=== PATIENT | female | born 1985 | race Two or more races ===

== ENCOUNTER 2017-11-05 13:33 | Emergency (ER) | payer MEDICAID ==
[~2017-11-05] VITALS: Ht 165.1 cm; Wt 58.9 kg
[2017-11-05 14:46] VITALS: BP 122/67
== END 2017-11-05 14:51 | disposition home or self-care (01) ==
LOC: ED 14:45
DX: G89.29 Other chronic pain (principal); F17.200 Nicotine dependence, unspecified, uncomplicated; Z76.0 Encounter for issue of repeat prescription
CPT/HCPCS: 99281

== ENCOUNTER 2018-03-14 12:27 | Emergency (ER) | payer MEDICAID ==
[~2018-03-14] VITALS: Ht 175.3 cm; Wt 59.0 kg
[2018-03-14 12:41] VITALS: BP 101/71
== END 2018-03-14 13:57 | disposition home or self-care (01) ==
LOC: ED 13:51
DX: J20.8 Acute bronchitis due to other specified organisms (principal); B97.89 Other viral agents as the cause of diseases classified elsewhere; J02.8 Acute pharyngitis due to other specified organisms
CPT/HCPCS: 71046; 87081; 87147; 87880; 99285

== ENCOUNTER 2018-04-19 15:28 | Emergency (ER) | payer MEDICAID ==
[~2018-04-19] VITALS: Ht 165.1 cm; Wt 61.1 kg
[2018-04-19 15:47] VITALS: BP 103/69
[2018-04-19] MEDS ORDERED: IBUPROFEN 200 MG TABLET PO ONE (16:30)
== END 2018-04-19 16:58 | disposition home or self-care (01) ==
LOC: ED 16:47
DX: M70.832 Other soft tissue disorders related to use, overuse and pressure, left forearm (principal); F17.200 Nicotine dependence, unspecified, uncomplicated
CPT/HCPCS: 29260; 99284

== ENCOUNTER 2018-08-23 14:39 | Emergency (ER) | payer MEDICAID ==
[~2018-08-23] VITALS: Ht 165.1 cm; Wt 65.0 kg
[2018-08-23 14:40] VITALS: BP 103/69
--- NOTE | 2018-08-23 15:18 | NUR ---
MEDICATION REQUESTED FROM PHARMACY
[2018-08-23] MEDS ORDERED: CLINDAMYCIN 150 MG/ML, 6ML IM ONE (15:30)
[2018-08-23] MEDS ORDERED: CLINDAMYCIN 150 MG/ML, 6ML ONE (15:35)
--- NOTE | 2018-08-23 15:44 | NUR ---
PT MEDICATED PER EMAR. DESPITE EDUCATION REGARDING OBS PERIOD, PT REQUESTING DC. PT REPORTS 'I'VE HAD THIS ANTIBIOTIC BEFORE'. PT REPORTS THAT FRIEND IS IN DEPARTMENT AND THAT SHE WILL BE IN ED UNTIL FRIEND'S DC. PT MADE AWARE OF S/S OF RXN AND AGREES TO MAKE STAFF AWARE OF RXN. DC EDUCATION PROVIDED, PT DEMONSTRATES UNDERSTANDING. PT AMBULATED STEADILY TO ROOM 17
== END 2018-08-23 15:47 | disposition home or self-care (01) ==
LOC: ED 15:09
DX: K04.7 Periapical abscess without sinus (principal); F17.200 Nicotine dependence, unspecified, uncomplicated
CPT/HCPCS: 96372; 99283; S0077

== ENCOUNTER 2019-05-03 19:24 | Emergency (ER) | payer SELFPAY ==
[~2019-05-03] VITALS: Ht 165.1 cm; Wt 61.4 kg
[2019-05-03 19:37] VITALS: BP 109/71
[2019-05-03] MEDS ORDERED: LIDOCAINE 1%, 10ML INFIL ONE (20:00)
[2019-05-03] MEDS ORDERED: BUPIVACAINE 0.25% INFIL ONE (20:00)
[2019-05-03] MEDS ORDERED: BUPIVACAINE/PF 0.5% ONE (20:02)
[2019-05-03] MEDS ORDERED: LIDOCAINE-MPF 1%, 5ML ONE (20:03)
[2019-05-03] MEDS ORDERED: BUPIVACAINE 0.25% ONE (20:04)
== END 2019-05-03 20:22 | disposition home or self-care (01) ==
LOC: ED 20:16
DX: K02.9 Dental caries, unspecified (principal); F17.200 Nicotine dependence, unspecified, uncomplicated; Z88.5 Allergy status to narcotic agent
CPT/HCPCS: 64400; 99284; J3490

== ENCOUNTER 2019-05-05 10:25 | Emergency (ER) | payer OTHER ==
[~2019-05-05] VITALS: Ht 165.1 cm; Wt 60.9 kg
[2019-05-05 10:28] VITALS: BP 114/75
--- NOTE | 2019-05-05 10:36 | NUR ---
DISCUSSED PT WITH DR MUÑIZ. PT SEEN IN [facility] ON 05/03 AND RPTS WORSENING PAIN AND SWELLING DESPITE ANTIBIOTICS. PT STATES THAT SHE HAS ATTEMPTED TO F/U WITH [facility] BUT THEY WILL NOT SEE HER UNTIL THE INFECTION IS RESSOLVED. PT OK TO GO TO [facility] AND HE WILL REVIEW POC WITH [facility] PA
[2019-05-05] MEDS ORDERED: OXYcodone/APAP 5/325MG TABLET PO ONE (11:00)
[2019-05-05] MEDS ORDERED: AZITHROMYCIN 500 MG TABLET ONE (11:11)
[2019-05-05] MEDS ORDERED: OXYcodone/APAP 5/325MG TABLET ONE ×2 (11:12→11:16)
[2019-05-05] MEDS ORDERED: AZITHROMYCIN 500 MG TABLET PO ONE (11:30)
== END 2019-05-05 12:05 | disposition home or self-care (01) ==
LOC: ED 12:00
DX: K02.9 Dental caries, unspecified (principal); Z87.11 Personal history of peptic ulcer disease
CPT/HCPCS: 99283

== ENCOUNTER 2020-04-10 17:51 | Emergency (ER) | payer MEDICAID ==
[~2020-04-10] VITALS: Ht 165.1 cm; Wt 59.3 kg
[2020-04-10 18:02] VITALS: BP 137/81
--- NOTE | 2020-04-10 18:07 | NUR ---
patient arrives to the er with pain in left wrist inside aspect. pain began this morning, and she as a result has limited rom.
[2020-04-10] MEDS ORDERED: PANT40TA6 PO (18:14)
[2020-04-10] MEDS ORDERED: POLY17PO5 PO (18:14)
[2020-04-10] MEDS ORDERED: DOCU-131 PO (18:14)
[2020-04-10] MEDS ORDERED: BISA10SU4 PR (18:14)
[2020-04-10] MEDS ORDERED: SIME80TA15 PO (18:14)
--- NOTE | 2020-04-10 18:49 | NUR ---
xray done. got patient ice pack. report to KUNAL Garcia. patient in bed, rails up.
[2020-04-10] MEDS ORDERED: KETOROLAC 30 MG/1 ML IM ONE (19:00)
--- NOTE | 2020-04-10 19:01 | NUR ---
report recevied from dari alcantara
[2020-04-10] MEDS ORDERED: KETOROLAC 30 MG/1 ML ONE (19:03)
--- NOTE | 2020-04-10 19:46 | NUR ---
Assist RN: Discharge instructions given. All questions and concerns addressed. Patient ambulatory with a steady gait. Belongings with patient.
== END 2020-04-10 19:47 | disposition home or self-care (01) ==
LOC: ED 18:21
DX: M77.8 Other enthesopathies, not elsewhere classified (principal); Z87.891 Personal history of nicotine dependence; Z87.11 Personal history of peptic ulcer disease
CPT/HCPCS: 29125; 73110; 96372; 99283; J1885; 96374

== ENCOUNTER 2020-05-30 17:09 | Emergency (ER) | payer MEDICAID ==
[~2020-05-30] VITALS: Ht 165.1 cm; Wt 58.0 kg
[~2020-05-30 17:09] MED LIST: BISA10SU4 PR; DOCU-131 PO; PANT40TA6 PO; POLY17PO5 PO; SIME80TA15 PO
[2020-05-30] MEDS ORDERED: MULT-516 PO (18:23)
[2020-05-30] MEDS ORDERED: METO10TA82 PO (18:23)
[2020-05-30] MEDS ORDERED: LACT1CAP11 PO (18:23)
--- NOTE | 2020-05-30 18:23 | NUR ---
PATIENT AMBULATORY UPON ARRIVAL TO DEPARTMENT, REPORTS RIGHT MAXILLARY SWELLING X 2 DAYS WITH RED GUMS ON EITHER SIDE OF CROWNED TOOTH. STATES USUALLY HAS ORAL ABSCESSES IN LOWER JAW, BACK TEETH AND PRESSURE/HEADACHE FEELS THE SAME PREVIOUS DENTAL INFECTION IN DIFFERENT AREA THAN NORMAL.
[2020-05-30 19:07] VITALS: BP 130/77
== END 2020-05-30 19:10 | disposition home or self-care (01) ==
LOC: ED 19:07
DX: K02.9 Dental caries, unspecified (principal); J01.80 Other acute sinusitis; R51.9 Headache, unspecified; Z88.5 Allergy status to narcotic agent
CPT/HCPCS: 99283

== ENCOUNTER 2020-07-20 20:59 | Emergency (ER) | payer MEDICAID ==
[~2020-07-20] VITALS: Ht 165.1 cm; Wt 57.2 kg
[~2020-07-20 20:59] MED LIST changes: +LACT1CAP11 PO; +METO10TA82 PO; +MULT-516 PO
[2020-07-20 21:01] VITALS: BP 148/100
[2020-07-20] MEDS ORDERED: LIDOCAINE-MPF 1%, 5ML INFIL ONE (21:30)
[2020-07-20] MEDS ORDERED: LORazepam 1MG TABLET PO ONE (21:30)
[2020-07-20] MEDS ORDERED: LIDOCAINE-MPF 1%, 5ML ONE (21:55)
[2020-07-20] MEDS ORDERED: LORazepam 1MG TABLET ONE (21:56)
== END 2020-07-20 22:39 | disposition home or self-care (01) ==
LOC: ED 21:48
DX: S61.211A Laceration without foreign body of left index finger without damage to nail, initial encounter (principal); F17.200 Nicotine dependence, unspecified, uncomplicated; X58.XXXA Exposure to other specified factors, initial encounter; Y93.89 Activity, other specified; Y92.89 Other specified places as the place of occurrence of the external cause; Y99.8 Other external cause status
CPT/HCPCS: 12041; 99284

== ENCOUNTER 2020-10-16 00:22 | Emergency (ER) | payer MEDICAID ==
[~2020-10-16] VITALS: Ht 165.1 cm; Wt 57.1 kg
[2020-10-16 00:27] VITALS: BP 135/65
--- NOTE | 2020-10-16 02:41 | NUR ---
etiologist: pt moved from lobby to room 22
--- NOTE | 2020-10-16 03:05 | NUR ---
PT C/O PAIN TO RIGHT UPPER TEETH
[2020-10-16] MEDS ORDERED: PENICILLIN VK 500MG TABLET ONE ×2 (03:42→03:43)
[2020-10-16] MEDS ORDERED: CLINDAMYCIN 300 MG CAPSULE ONE (03:47)
[2020-10-16] MEDS ORDERED: PENICILLIN VK 500MG TABLET PO ONE (04:00)
[2020-10-16] MEDS ORDERED: CLINDAMYCIN 300 MG CAPSULE PO ONE (04:00)
== END 2020-10-16 03:50 | disposition home or self-care (01) ==
LOC: ED 02:28
DX: K08.89 Other specified disorders of teeth and supporting structures (principal); F17.210 Nicotine dependence, cigarettes, uncomplicated
CPT/HCPCS: 99406